=== PATIENT | male | born 1950 | race Hispanic/Latino ===

== ENCOUNTER 2019-12-25 | Emergency (ER) | payer MEDICARE ==
[2019-12-25 10:27] LABS: HEMATOCRIT 44.5 % (39.0-50.0); HEMOGLOBIN 14.7 g/dl (14.0-18.0); IMMATURE GRANULOCYTES 0.3 % (0.0-5.0); MEAN CELL VOLUME 92.5 fL CALC (80.0-100.0); MEAN CORPUSCULAR HGB 30.6 pG CALC (26.0-32.0); NEUT# 3.83 thou/uL (1.82-7.42); RED BLOOD COUNT 4.81 mill/uL (4.70-6.10); RED CELL DISTRI WIDTH 12.6 % (11.5-15.5)
[2019-12-25 10:51] LABS: ALKALINE PHOSPHATASE 68 u/l (38-126); ANION GAP 13 (6-22 (CALC)); BILIRUBIN, TOTAL 0.6 mg/dL (0.0-1.4); BUN 16 mg/dL (8-23); BUN/CREATININE RATIO 25 (12-20 (CALC)); CARBON DIOXIDE 26 mmol/l (22-30); CHLORIDE 107 mmol/l (95-108); CREATININE 0.6 mg/dL (0.7-1.3); GFR > 60 ML/MIN (>=60 (CALC)); GFR FOR AFR.AMER. > 60 ML/MIN (>=60 (CALC)); SGOT/AST 24 u/l (19-48); SODIUM 141 mmol/l (137-146)
[2019-12-25 10:55] LABS: POTASSIUM 4.7 mmol/l (3.5-5.1)
== END 2019-12-25 12:00 | disposition left against medical advice (07) ==
PROVIDERS: Family Medicine
DX: R07.9 Chest pain, unspecified (principal); N40.0 Benign prostatic hyperplasia without lower urinary tract symptoms; R42 Dizziness and giddiness; Z91.19 Patient's noncompliance with other medical treatment and regimen; R06.02 Shortness of breath